=== PATIENT | male | born 1960 | race Caucasian/White ===

== ENCOUNTER → 2016-06-06 | Outpatient (CLI) | payer BC ==
--- NOTE | 2016-06-06 10:21 | DIAGNOSTIC IMAGING REPORT ---
RIGHT SHOULDER MIN 2 VIEWS CLINICAL HISTORY: Right shoulder pain. COMPARISON: None FINDINGS: Alignment of the right shoulder is anatomic. No fracture or suspicious lesion is evident. There is mild arthritis of the acromioclavicular and glenohumeral joints. IMPRESSION: 1. No acute fracture or dislocation of the right shoulder. 2. 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 Electronically signed by: Lizandro Lind M.D. 06/06/2016 10:19 AM Dictated Date/Time: 06/06/2016 10:19 AM
== END | disposition home or self-care (01) ==
LOC: C.RDSM 09:15
PROVIDERS: ATTEND Family Medicine
DX: M25.511 Pain in right shoulder (principal); M19.011 Primary osteoarthritis, right shoulder

== ENCOUNTER → 2016-06-08 | Outpatient (CLI) | payer BC ==
--- NOTE | 2016-06-08 12:49 | DIAGNOSTIC IMAGING REPORT ---
MRI OF THE RIGHT SHOULDER CLINICAL HISTORY: Right shoulder pain. COMPARISON STUDY: Radiographs of the right shoulder dated 06/06/2016. TECHNIQUE: MRI of the right shoulder was performed utilizing various T1 and T2 weighted sequences in the axial, sagittal, coronal planes. IV contrast was not administered for this examination. The examination is significantly degraded by motion artifact. FINDINGS: Rotator cuff: There is mild tendinopathy of the supraspinatus tendon. The supraspinatus and intraspinous tendons are intact. The teres minor and subscapularis tendons appear maintained. There is trace subdeltoid bursal fluid. Minimal productive change is seen at the acromioclavicular joint. Biceps tendon: There is mild tendinopathy and thinning of the long head of the biceps tendon. The fibers of the tendon are intact and the tendon is located within the bicipital groove. The anchor is maintained. Labrum: There is a SLAP tear of the glenoid labrum. Shoulder joint: There is no joint effusion. The articular cartilage over the glenoid is well maintained. Moderate arthritic change and marrow edema is present within the greater tuberosity of the humeral head. There is no MRI evidence of fracture. Musculature and soft tissues: The musculature of the shoulder is normal in bulk. No atrophy is seen. There is significant edema and fluid identified anterior to the proximal humeral shaft. A curvilinear density seen anterior to the long head of the biceps tendon on axial image #14 likely represents a torn/abnormal tendinous structure. This may be related to the pectoralis tendon. There is a small volume of fluid seen tracking along the partially imaged pectoralis muscle. There is questionable discontinuity of the posterior band of the inferior glenohumeral ligament. IMPRESSION: 1. There is mild tendinopathy of the supraspinatous tendon. The rotator cuff tendons appear intact. 2. There is a SLAP tear of the gland labrum. 3. Significant soft tissue edema and fluid is seen along the anterior to the proximal humeral shaft, and a torn tendinous structure is suggested in this region. This is of indeterminate etiology and may represent injury/tear of the pectoralis tendon which is not well-visualized on this examination. Clinical correlation will be essential. 4. There is mild thickening and tendinopathy of the long head of the biceps tendon. The fibers of the tendon are intact. 5. Question discontinuity of the posterior band of the inferior glenohumeral ligament. A HAGL injury would be impossible to exclude. Electronically signed by: Navin Castillo M.D. 06/08/2016 12:48 PM Dictated Date/Time: 06/08/2016 12:11 PM
== END | disposition home or self-care (01) ==
LOC: C.MRI 10:40
PROVIDERS: ATTEND Family Medicine
DX: M25.511 Pain in right shoulder (principal); S43.431A Superior glenoid labrum lesion of right shoulder, initial encounter; X58.XXXA Exposure to other specified factors, initial encounter; M79.9 Soft tissue disorder, unspecified

== ENCOUNTER → 2017-01-31 | Outpatient (CLI) | payer BC | END | disposition home or self-care (01) | LOC: C.CPL 08:22 | PROVIDERS: ATTEND Orthopaedic Surgery | DX: M75.21 Bicipital tendinitis, right shoulder (principal); Z01.812 Encounter for preprocedural laboratory examination; Z01.810 Encounter for preprocedural cardiovascular examination ==

== ENCOUNTER → 2017-02-09 | Day surgery (SDC) | payer BC ==
[2017-02-08 11:32] VITALS: Ht 170.2 cm; Wt 68.2 kg
[~2017-02-09] VITALS: Ht 170.2 cm; Wt 68.2 kg
[~2017-02-09] MED LIST: ASPI-435 PO; ATROPINE SULFATE 0.1 MG/ML 5ML SYR IV PRN; BUPIVACAINE/EPINEPHRINE 0.25% 1:200,000 30 ML VIAL ONE; BUPIVACAINE/EPINEPHRINE 0.5% MPF 1:200,000 30 ML VIAL ONE; CEFAZOLIN 2000 MG/60 ML D5W IV SCH; DEXAMETHASONE SOD INJ 4 MG/ML VIAL ONE; EpHEDrine SULFATE INJ 50 MG/ML AMP IV PRN; EpINEphrine INJ 1MG/ML AMP 1 MG/ML AMP ONE; FENTANYL CITRATE INJ 50 MCG/1 ML 2 ML VIAL IV PRN; FENTANYL CITRATE INJ 50 MCG/1 ML 2 ML VIAL ONE; JUICE PLUS PO; KETO10TA PO; LACTATED RINGER'S 1000ML 1,000 ML IV SCH; LIDOCAINE HCL 2% 2 ML VIAL (20MG/ML) ONE; MIDAZOLAM HCL 1 MG/ML 2ML VIAL ONE; ONDANSETRON INJ 2 MG/ML 2 ML VIAL IV PRN; OXYC-57 PO; OXYCODONE/ACETAMINOPHEN 5-325 TAB PO PRN; PATIENT'S ALLERGY INFO NEEDS ENTERED SCH; PROMETHAZINE HCL INJ 6.25 MG in SODIUM CHLORIDE 0.9% 50ML 50 ML IV PRN; PROPOFOL IV EMULSION 10 MG/ML 20 ML VIAL IV ONE; SODIUM CHLORIDE 0.9% 1000ML 1,000 ML IV SCH
--- NOTE | 2017-02-09 09:19 | History & Physical Bridge - [place] ---
H&P Re-Evaluation Bridge Note: I have examined the patient, reviewed the History & Physical and in the interval since the performance of the History & Physical I have noted the following changes of clinical significance: No changes noted
--- NOTE | 2017-02-09 12:04 | Discharge Instructions-SurgCtr ---
Discharge Instructions Date of Service Feb 09, 2017. Visit Reason for Visit: Right Biceps Tendinitis, Shoulder Pain Discharge Discharge Diagnosis / Problem: SAME ABOVE Discharge Goals Goal(s): Decrease discomfort, Improve function Activity Recommendations Activity Limitations: as noted below Lifting Limitations: until after follow-up appointment Exercise/Sports Limitations: until after follow-up appointment Shower/Bathe: tomorrow Anesthesia . Post Anesthesia Instructions: If you have had General Anesthesia or IV Sedation: * Do not drive today. * Resume driving when surgeon permits. * Do not make important decisions or sign legal documents today. * Call surgeon for: 1. Temperature elevations greater than 101 degrees F. 2. Uncontrollable pain. 3. Excessive bleeding. 4. Persistent nausea and vomiting. 5. Medication intolerance (nausea, vomiting or rash). * For nausea and vomiting use only clear liquids such as: tea, soda, bouillon until nausea subsides, then gradually increase diet as tolerated. * If you have any concerns or questions, call your surgeon's office. If physician is unavailable and it is an emergency, call 911 or go to the nearest emergency room. . Instructions / Follow-Up Instructions / Follow-Up MEDICATIONS: * Resume previous medications unless instructed otherwise by your surgeon. * Always take pain medication on a full stomach or with food to avoid upset stomach. * Do not drink alcohol or drive while taking narcotics. * Ibuprofen or Tylenol may be taken if narcotic not needed. SPECIAL CARE INSTRUCTIONS: __ None _X_ Keep extremity elevated and iced x 48 hours; apply ice 20-30 minutes 8-10 times/day. May remove at night. _X_ Sling (WEAR NEEDED FOR COMFORT) __24 hrs/day __ Remove at night __ Shoulder Immobilizer __ 24 hrs/day __ Remove at night _X_ Dressing __ Maintain until seen in office, may shower with plastic over site _X_ Remove dressings in 24-48 hours and then may shower _X_ Cover incisions with band-aids after showering _X_ Do not remove steri-strips Call physician if chills or temperature rises above 102 degrees or pain unrelieved by prescribed pain medications at . . Diet Recommendations Home Diet: no limitations Fluid Restriction: None Procedures Procedures Performed: Right Shoulder Arthroscopy, Open Biceps Tenodesis Pending Studies Studies pending at discharge: no Work Instructions Return To Work: after follow-up Lifting Limitations: NO LIFTING WITH RIGHT ARM Medical Emergencies . Who to Call and When: Medical Emergencies: If at any time you feel your situation is an emergency, please call 911 immediately. . Non-Emergent Contact Non-Emergency issues call your: Primary Care Provider Call Non-Emergent contact if: you have a fever, temperature is above 101.5 . . "Provider Documentation" section prepared by Crow Mirza. .
[2017-02-09 12:05] VITALS: TEMP 36.8
--- NOTE | 2017-02-09 12:21 | OPERATIVE REPORT ---
DATE OF OPERATION: 02/09/2017 PREOPERATIVE DIAGNOSIS: Biceps tendonitis of the right shoulder. POSTOPERATIVE DIAGNOSIS: Same. PROCEDURES: Right shoulder diagnostic arthroscopy with limited debridement and then an open subpectoral biceps tenodesis. SURGEON: Dr. Shashank Ferrell. USED CAR MAKE READY WORKER: Abel Mirza PA-C, whose assistance was necessary for positioning the arm and helping with instrumentation. ANESTHESIA: Sedation with a right interscalene nerve block. COMPLICATIONS: None. CONDITION: Stable to PACU. INDICATIONS: Bi is a pleasant 56-year-old male who has been dealing with a long history of right anterior shoulder pain. He does recall overusing his shoulder, but no traumatic event. MRI does show a lot of fluid in the biceps groove and a possible loose body. After failing extensive conservative treatment including multiple injections, he elected to proceed with arthroscopy and biceps tenodesis. DESCRIPTION OF PROCEDURE: On 02/09/2017, he arrived at [facility] for the above procedure. He was seen in the preoperative holding area and the operative extremity was identified and signed. He was given a preoperative antibiotic and a right interscalene nerve block. He was taken back to the operating room, laid on the table in supine position and given basic sedation. He was then put into the beachchair position. The right shoulder was prepped and draped in the sterile fashion. Time-out was done and the patient and operative extremity was properly identified. A scope was introduced into the posterior portal. Diagnostic arthroscopy showed no cartilage damage to the humeral head or the glenoid. There was some fraying of the superior and anterior labrum. The biceps tendon went through a normal size biceps ave mechanism. There was a little fraying of the undersurface of the supraspinatus. An anterior portal was made. A shaver was used to do a limited debridement of the intraarticular structures and the biceps tendon was arthroscopically tenotomized. Final diagnostic arthroscopy showed no additional pathology. He was not having any subacromial pain preoperatively and the MRI showed no evidence of subacromial pathology. Arthroscopic instruments were removed from the shoulder. Attention was turned to an open biceps tenodesis. A small incision was made over the inferior border of the pec major. Dissection was taken down through the fascia and the long head of the biceps tendon was delivered out of the wound. Digital palpation was done to see if I could feel or remove any large loose bodies. There were no large loose bodies to be removed. The tendon was then whipstitched at the anticipated level of tenodesis. A 6-mm hole was drilled in the bicipital groove and the biceps tendon was tenodesed with an Arthrex biceps button that was passed through the posterior cortex and flipped in a tension slide technique to deliver the button into the 6-mm hole. This gave good fixation. The wound was then irrigated. The pec major was palpated extensively and there was no evidence of tearing. The incision was then closed with 3-0 Vicryl, running 3-0 Monocryl and Steri-Strips. Portal sites were closed with 3-0 nylon. He was then placed in a soft dressing and regular arm sling. He was then extubated, transferred to a litter and taken to the postanesthesia care unit in stable condition. He tolerated the procedure well. I attest to the content of the Intraoperative Record and any orders documented therein. Any exception s are noted below.
[2017-02-09 12:30] VITALS: BP 134/71; PULSE 85; O2SAT 98
--- NOTE | 2017-02-09 12:57 | Anesthesia Progress Nt - [facility] ---
Anesthesia Post Op Note Date & Time Feb 09, 2017 at 12:57 Vital Signs Pain Intensity: 0 Vital Signs Past 12 Hours Date Time Temp Pulse Resp B/P (MAP) Pulse Ox O2 Delivery O2 Flow Rate FiO2 02/09/17 12:30 85 16 134/71 (92) 98 Room Air 02/09/17 12:05 36.8 84 16 128/71 (90) 95 Room Air 02/09/17 11:07 83 02/09/17 11:07 87 21 97 02/09/17 11:05 125/64 02/09/17 11:02 84 18 96 02/09/17 11:02 83 02/09/17 11:00 122/66 02/09/17 10:57 81 7 96 02/09/17 10:57 81 02/09/17 10:55 118/73 02/09/17 10:52 70 02/09/17 10:52 71 13 96 02/09/17 10:50 131/82 02/09/17 10:47 87 02/09/17 10:47 88 20 96 02/09/17 10:45 154/96 02/09/17 08:48 36.8 84 16 130/87 (101) 95 Room Air Notes Mental Status: alert / awake / arousable, participated in evaluation Pt Amnestic to Procedure: Yes Nausea / Vomiting: adequately controlled Pain: adequately controlled Airway Patency, RR, SpO2: stable & adequate BP & HR: stable & adequate Hydration State: stable & adequate Anesthetic Complications: no major complications apparent Block working well in pacu
--- NOTE | 2017-02-09 16:18 | [facility] Post Operative Brief Note ---
Immediate Operative Summary Operative Date Feb 09, 2017. Pre-Operative Diagnosis Right Shoulder Biceps Tendonitis Post-Operative Diagnosis Same Procedure(s) Performed Right Shoulder Arthroscopy, Limited Debridement, Open Biceps Tenodesis Surgeon Dr Ferrell Mounter Saxophones Surgeon(s) Abel Mirza PA-C Estimated Blood Loss 5ml Findings as above Specimens None Complication(s) None Disposition Recovery Room / PACU
== END | disposition home or self-care (01) ==
LOC: X.SURG 08:23
PROVIDERS: ATTEND Orthopaedic Surgery
DX: M75.21 Bicipital tendinitis, right shoulder (principal); Z68.23 Body mass index [BMI] 23.0-23.9, adult; Z98.890 Other specified postprocedural states

== ENCOUNTER → 2017-05-08 | Outpatient (CLI) | payer BC, OTHER ==
[~2017-05-08] MED LIST changes: -ATROPINE SULFATE 0.1 MG/ML 5ML SYR IV PRN; -BUPIVACAINE/EPINEPHRINE 0.25% 1:200,000 30 ML VIAL ONE; -BUPIVACAINE/EPINEPHRINE 0.5% MPF 1:200,000 30 ML VIAL ONE; -CEFAZOLIN 2000 MG/60 ML D5W IV SCH; -DEXAMETHASONE SOD INJ 4 MG/ML VIAL ONE; -EpHEDrine SULFATE INJ 50 MG/ML AMP IV PRN; -EpINEphrine INJ 1MG/ML AMP 1 MG/ML AMP ONE; -FENTANYL CITRATE INJ 50 MCG/1 ML 2 ML VIAL IV PRN; -FENTANYL CITRATE INJ 50 MCG/1 ML 2 ML VIAL ONE; -LACTATED RINGER'S 1000ML 1,000 ML IV SCH; -LIDOCAINE HCL 2% 2 ML VIAL (20MG/ML) ONE; -MIDAZOLAM HCL 1 MG/ML 2ML VIAL ONE; -ONDANSETRON INJ 2 MG/ML 2 ML VIAL IV PRN; -OXYCODONE/ACETAMINOPHEN 5-325 TAB PO PRN; -PATIENT'S ALLERGY INFO NEEDS ENTERED SCH; -PROMETHAZINE HCL INJ 6.25 MG in SODIUM CHLORIDE 0.9% 50ML 50 ML IV PRN; -PROPOFOL IV EMULSION 10 MG/ML 20 ML VIAL IV ONE; -SODIUM CHLORIDE 0.9% 1000ML 1,000 ML IV SCH
--- NOTE | 2017-05-08 14:27 | DIAGNOSTIC IMAGING REPORT ---
R KNEE 3 VIEWS CLINICAL HISTORY: BILATERAL KNEE PAIN pain COMPARISON: None. DISCUSSION: Mild degenerative change of the medial joint compartments bilaterally. Several loose bodies in the region of the intercondylar notch left knee. Mild degenerative changes of patellofemoral articular services. There is no evidence for soft tissue swelling. IMPRESSION: 1. Mild degenerative change of the medial and patellar Joint compartments bilaterally. 2. Loose bodies in the region of the intercondylar notch left knee. The above report was generated using voice recognition software. It may contain grammatical, syntax or spelling errors. Electronically signed by: Saulo Rodriguez M.D. 05/08/2017 2:26 PM Dictated Date/Time: 05/08/2017 2:24 PM
== END | disposition home or self-care (01) ==
LOC: C.RDSM 14:14
PROVIDERS: ATTEND Family Medicine
DX: M25.561 Pain in right knee (principal); M23.42 Loose body in knee, left knee